=== PATIENT | female | born 1985 | race Two or more races ===

== ENCOUNTER 2021-02-17 16:48 | Observation (INO) | payer MEDICAID ==
[~2021-02-17] VITALS: Ht 157.5 cm; Wt 68.0 kg
[2021-02-17] MEDS: LACTATED RINGERS 1,000 ML IV SCH (22:30)
[2021-02-17] MEDS ORDERED: NALOXONE HCL 0.4 MG/ML 1ML VIAL IM PRN (23:15)
[2021-02-17] MEDS ORDERED: BUTORPHANOL TARTRATE 2 MG/ML VIAL IV PRN (23:15)
[2021-02-17] MEDS ORDERED: LIDOCAINE HCL 1% 20ML VIAL (Pyxis) INJ INFIL SCH (23:15)
[2021-02-17] MEDS ORDERED: DEXT 5%/LR + PITOCIN 20UNITS/L 1,000 ML IV SCH (23:15)
[2021-02-17] MEDS ORDERED: METHYLERGONOVINE MALEATE 0.2 MG/ML IM PRN (23:15)
[2021-02-17 23:52] LABS: BASOPHILS % 0.7 % (0.0-2.0); EOSINOPHILS % 1.4 % (0.0-5.0); HEMATOCRIT. 39.8 % (36.0-48.0); HEMOGLOBIN. 13.1 g/dL (12.0-16.0); LYMPHOCYTES % 20.2 % (20.0-50.0); MEAN CORPUSCULAR HEMOGLOBIN 29.6 pg (28.0-32.0); MEAN CORPUSCULAR VOLUME 90.3 fL (81.0-99.0); MEAN PLATELET VOLUME 9.7 fl (7.4-10.4); NEUTROPHILS % 72.7 % (40.0-76.0); PLATELET 239 x1000/uL (130-400); RED BLOOD CELL COUNT 4.41 mill/uL (4.2-5.4); RED CELL DISTRIBUTION WIDTH 16.5 % (11.6-14.6)
[2021-02-17 23:56] LABS: CLARITY URINE CLEAR (CLEAR); COLOR URINE YELLOW (YELLOW); KETONES URINE 3+ (NEGATIVE); LEUKOCYTE ESTERASE URINE TRACE (NEGATIVE); NITRITE URINE NEGATIVE (NEGATIVE); OCCULT BLOOD URINE 2+ (NEGATIVE); PH URINE 6.5 (4.5-8.0); PROTEIN URINE NEGATIVE (NEGATIVE); SPECIFIC GRAVITY URINE 1.009 (1.005-1.030)
[2021-02-18 00:05] LABS: PARTIAL THROMBOPLASTIN TIME 27.1 sec (23.4-31.0); PROTHROMBIN TIME 10.3 sec (9.6-11.0)
[2021-02-18 00:08] LABS: *BARBITURATES SCREEN URINE NEGATIVE (NEGATIVE)
[2021-02-18 00:09] LABS: *AMPHETAMINES SCREEN URINE NEGATIVE (NEGATIVE); *BENZODIAZEPINES SCREEN URINE NEGATIVE (NEGATIVE); *COCAINE SCREEN URINE NEGATIVE (NEGATIVE); METHADONE URINE SCREEN NEGATIVE (NEGATIVE); OPIATES URINE SCREEN NEGATIVE (NEGATIVE); PHENCYCLIDINE URINE SCREEN NEGATIVE (NEGATIVE)
[2021-02-18 00:10] LABS: CANNABINOID URINE SCREEN NEGATIVE (NEGATIVE)
[2021-02-18 00:39] LABS: HEPATITIS B SURFACE ANTIGEN NEGATIVE
[2021-02-18] MEDS: LACTATED RINGERS 1,000 ML IV SCH (02:21)
== END 2021-02-18 08:05 | disposition home or self-care (01) ==
LOC: OBSVTOIN 16:48 → 8 EST LDRP 16:48 → INTOOBSV 16:48
PROVIDERS: ADMIT Specialist; ATTEND Specialist
DX: O62.9 Abnormality of forces of labor, unspecified (principal); O26.893 Other specified pregnancy related conditions, third trimester; R10.9 Unspecified abdominal pain; O09.523 Supervision of elderly multigravida, third trimester; Z79.899 Other long term (current) drug therapy; Z20.822 Contact with and (suspected) exposure to COVID-19; Z3A.39 39 weeks gestation of pregnancy
CPT/HCPCS: 36415; 59025; 80305; 81003; 85025; 85610; 85730; 86592; 86703; 86762; 86850; 86900; 86901; 87340; 87426; 96365; 96366; G0378; J2590; 99281

== ENCOUNTER 2021-02-19 09:09 | Observation (INO) | payer MEDICAID ==
[~2021-02-19] VITALS: Ht 160 cm; Wt 22.7 kg
== END 2021-02-19 12:00 | disposition home or self-care (01) ==
LOC: 8 EST LDRP 09:09 → UNDODISOB 12:00
PROVIDERS: ADMIT Specialist; ATTEND Specialist
DX: O46.93 Antepartum hemorrhage, unspecified, third trimester (principal); O09.523 Supervision of elderly multigravida, third trimester; Z3A.37 37 weeks gestation of pregnancy
CPT/HCPCS: 59025; 76805; 76818; G0378; 99281; G0379

== ENCOUNTER 2021-02-19 22:01 | Inpatient (IN) | payer MEDICAID ==
[~2021-02-19] VITALS: Ht 157.5 cm; Wt 68.0 kg
[2021-02-19] MEDS ORDERED: NALOXONE HCL 0.4 MG/ML 1ML VIAL IM PRN (22:30)
[2021-02-19] MEDS ORDERED: CARBOPROST TROMETHAMINE 250 MCG/ML AMPUL IM PRN (22:30)
[2021-02-19] MEDS ORDERED: METHYLERGONOVINE MALEATE 0.2 MG/ML IM PRN (22:30)
[2021-02-19] MEDS ORDERED: LIDOCAINE HCL 1% 20ML VIAL (Pyxis) INJ INFIL SCH (22:30)
[2021-02-19] MEDS ORDERED: BUTORPHANOL TARTRATE 2 MG/ML VIAL IV PRN (22:30)
[2021-02-19] MEDS ORDERED: DEXT 5%/LR + PITOCIN 20UNITS/L 1,000 ML IV SCH (22:30)
[2021-02-19] MEDS: LACTATED RINGERS 1,000 ML IV SCH (23:01)
[2021-02-20] MEDS ORDERED: IBUPROFEN 400MG TABLET PO PRN (00:15)
[2021-02-20] MEDS ORDERED: LANOLIN OINT 7GM TUBE TOP PRN (00:15)
[2021-02-20] MEDS ORDERED: HEMORRHOIDAL SUPP PR PRN (00:15)
[2021-02-20] MEDS ORDERED: DIPHENHYDRAMINE 25MG CAPSULE PO PRN (00:15)
[2021-02-20] MEDS ORDERED: BENZOCAINE/LANOLIN/ALOE VERA SPRAY TOP PRN (00:15)
[2021-02-20] MEDS ORDERED: IBUPROFEN 800MG TABLET PO PRN (00:15)
[2021-02-20] MEDS ORDERED: BISACODYL 10MG SUPP PR PRN (00:15)
[2021-02-20] MEDS ORDERED: ACETAMINOPHEN WITH CODEINE 300/30MG TABLET PO PRN (00:15)
[2021-02-20] MEDS ORDERED: GLYCERIN/WITCH HAZEL LEAF MEDICATED PAD TOP PRN (00:15)
[2021-02-20] MEDS: DEXT 5%/LR + PITOCIN 20UNITS/L 1,000 ML IV SCH ×2 (00:34→01:25)
[2021-02-20] MEDS: LACTATED RINGERS 1,000 ML IV SCH (00:34)
[2021-02-20 02:00] VITALS: BP 117/76
[2021-02-20 02:30] VITALS: BP 125/72
[2021-02-20 03:11] LABS: CLARITY URINE CLEAR (CLEAR); COLOR URINE YELLOW (YELLOW); KETONES URINE 3+ (NEGATIVE); LEUKOCYTE ESTERASE URINE NEGATIVE (NEGATIVE); NITRITE URINE NEGATIVE (NEGATIVE); OCCULT BLOOD URINE TRACE (NEGATIVE); PROTEIN URINE NEGATIVE (NEGATIVE); SPECIFIC GRAVITY URINE 1.008 (1.005-1.030)
[2021-02-20 03:20] LABS: *AMPHETAMINES SCREEN URINE NEGATIVE (NEGATIVE); *COCAINE SCREEN URINE NEGATIVE (NEGATIVE); CANNABINOID URINE SCREEN NEGATIVE (NEGATIVE); METHADONE URINE SCREEN NEGATIVE (NEGATIVE); OPIATES URINE SCREEN NEGATIVE (NEGATIVE); PHENCYCLIDINE URINE SCREEN NEGATIVE (NEGATIVE)
[2021-02-20 03:21] LABS: *BARBITURATES SCREEN URINE NEGATIVE (NEGATIVE); *BENZODIAZEPINES SCREEN URINE NEGATIVE (NEGATIVE)
[2021-02-20 03:30] VITALS: BP 118/74
[2021-02-20 08:54] LABS: BASOPHILS % 0.3 % (0.0-2.0); EOSINOPHILS % 0.6 % (0.0-5.0); HEMATOCRIT. 36.2 % (36.0-48.0); HEMOGLOBIN. 12.2 g/dL (12.0-16.0); LYMPHOCYTES % 12.2 % (20.0-50.0); MEAN CORPUSCULAR HEMOGLOBIN 30.1 pg (28.0-32.0); MEAN CORPUSCULAR VOLUME 89.3 fL (81.0-99.0); MEAN PLATELET VOLUME 9.2 fl (7.4-10.4); MONOCYTES % 7.5 % (2.0-8.0); NEUTROPHILS % 79.4 % (40.0-76.0); PLATELET 197 x1000/uL (130-400); RED BLOOD CELL COUNT 4.05 mill/uL (4.2-5.4); RED CELL DISTRIBUTION WIDTH 16.5 % (11.6-14.6)
[2021-02-20] MEDS: MAGNESIUM/ALUMINUM HYDROXIDE/SIMETHICONE 30ML UDC PO SCH ×4 (08:55→20:13)
[2021-02-20] MEDS: PRENATAL VIT/FE FUMARATE/FA TABLET PO SCH (08:55)
[2021-02-20] MEDS: SIMETHICONE 80MG TABLET CHEW PO SCH ×4 (08:55→20:13)
[2021-02-20 09:58] VITALS: BP_SYST 111; BP_SYST 116; BP_DIAS 78; BP_DIAS 79
[2021-02-20] MEDS: FERROUS SULFATE 325MG TABLET PO SCH (10:09)
[2021-02-20 16:00] VITALS: BP 118/73
[2021-02-20 19:40] VITALS: BP 113/73
[2021-02-20] MEDS ORDERED: DOCUSATE SODIUM 100MG CAPSULE PO SCH (21:00)
[2021-02-21 04:30] VITALS: BP 115/71
[2021-02-21] MEDS ORDERED: IBUP-2030 PO (06:26)
[2021-02-21] MEDS ORDERED: FERR-63 PO (06:26)
[2021-02-21] MEDS ORDERED: MULT-1116 MT (06:26)
[2021-02-21] MEDS ORDERED: MEDROXYPROGESTERONE ACETATE 150MG/ML VIAL IM SCH (07:30)
[2021-02-21 07:42] VITALS: BP 110/64
[2021-02-21] MEDS: MAGNESIUM/ALUMINUM HYDROXIDE/SIMETHICONE 30ML UDC PO SCH (09:43)
[2021-02-21] MEDS: PRENATAL VIT/FE FUMARATE/FA TABLET PO SCH (09:44)
[2021-02-21] MEDS: SIMETHICONE 80MG TABLET CHEW PO SCH (09:44)
[2021-02-21] MEDS: FERROUS SULFATE 325MG TABLET PO SCH (09:44)
== END 2021-02-21 11:50 | disposition home or self-care (01) | DRG 560 ==
LOC: OBSVTOIN 22:01 → 8 EST LDRP 22:01 → 8EST 02-20 01:45
PROVIDERS: ADMIT Specialist; ATTEND Specialist
PROC: 10E0XZZ Delivery of Products of Conception, External Approach (ICD-10-PCS; principal; 2021-02-20)
PROC: 0KQM0ZZ Repair Perineum Muscle, Open Approach (ICD-10-PCS; 2021-02-20)
PROC: 3E0R3BZ Introduction of Anesthetic Agent into Spinal Canal, Percutaneous Approach (ICD-10-PCS; 2021-02-20)
PROC: 00HU33Z Insertion of Infusion Device into Spinal Canal, Percutaneous Approach (ICD-10-PCS; 2021-02-20)
DX: O99.62 Diseases of the digestive system complicating childbirth (principal); Z37.0 Single live birth; O24.420 Gestational diabetes mellitus in childbirth, diet controlled; K80.20 Calculus of gallbladder without cholecystitis without obstruction; O70.1 Second degree perineal laceration during delivery; Z3A.39 39 weeks gestation of pregnancy
CPT/HCPCS: 36415; 80305; 81003; 82962; 85025; 99281; G0378; J1050; J2590